=== PATIENT | female | born 1990 | race Two or more races ===

== ENCOUNTER 2021-01-08 06:38 | Inpatient (IN) | payer MEDICAID ==
[~2021-01-08] VITALS: Ht 157.5 cm; Wt 85.9 kg
[2021-01-08] MEDS ORDERED: PREN1TAB62 PO (06:59)
[2021-01-08] MEDS ORDERED: TERBUTALINE 1 MG/ML, 1ML SQ PRN (07:00)
[2021-01-08] MEDS ORDERED: OXYTOCIN 30U/ 0.9% NaCL 500ML 500 ML IV PRN (07:00)
[2021-01-08] MEDS ORDERED: FENTANYL PF 100 MCG/2ML IVPush PRN (07:00)
[2021-01-08] MEDS ORDERED: ONDANSETRON 2MG/ML, 2ML IVPush PRN (07:00)
[2021-01-08] MEDS ORDERED: FENTANYL PF 100 MCG/2ML IV PRN (07:00)
[2021-01-08] MEDS ORDERED: PLEASE ENTER HEIGHT AND WEIGHT MC SCH (07:00)
[2021-01-08] MEDS ORDERED: D5%-LACTATED RINGERS 1,000 ML IV SCH (07:00)
[2021-01-08] MEDS ORDERED: OXYTOCIN 30U/ 0.9% NaCL 500ML 500 ML IV ONE (07:00)
[2021-01-08] MEDS ORDERED: TERBUTALINE 1 MG/ML, 1ML IVPush PRN (07:00)
[2021-01-08] MEDS ORDERED: PLEASE ENTER ALLERGIES MC SCH (07:00)
[2021-01-08] MEDS ORDERED: CALCIUM CARBONATE 500 MG TAB.CHEW PO PRN (07:00)
[2021-01-08 07:01] VITALS: BP 134/80
[2021-01-08] MEDS: LACTATED RINGERS 1,000 ML IV SCH ×2 (07:10→15:41)
[2021-01-08] MEDS ORDERED: LIDOCAINE 1%, 20ML ONE (07:14)
[2021-01-08] MEDS ORDERED: OXYTOCIN 30U/ 0.9% NaCL 500ML 500 ML ONE (07:14)
[2021-01-08] MEDS ORDERED: MISOPROSTOL 200 MCG TABLET ONE (07:14)
[2021-01-08 07:20] LABS: BASOPHILS % (AUTO) 1 % (0-1); EOSINOPHILS % (AUTO) 1 % (1-7); LYMPHOCYTES % (AUTO) 33 % (22-44); MEAN CORPUSCULAR HEMOGLOBIN 29.1 pg (27.0-34.8); MEAN CORPUSCULAR HGB CONC 34.1 g/dL (32.4-35.8); MEAN PLATELET VOLUME 9.4 fL (7.4-10.4); MONOCYTES % (AUTO) 8 % (2-9); NEUTROPHILS % (AUTO) 57 % (42-75); PLATELET COUNT 203 x10^3/uL (130-400); RED BLOOD COUNT 4.94 x10^6/uL (3.82-5.3); RED CELL DISTRIBUTION WIDTH 14.5 % (9.6-15.2)
[2021-01-08 07:21] LABS: MD NO
[2021-01-08] MEDS ORDERED: FENTANYL PF 100 MCG/2ML ONE ×2 (15:33→16:29)
[2021-01-08] MEDS ORDERED: NEWBORN KIT ONE (16:48)
[2021-01-08] MEDS ORDERED: IBUPROFEN 600 MG TABLET ONE (17:53)
[2021-01-08] MEDS ORDERED: OXYcodone/APAP 5/325MG TABLET PO PRN ×2 (18:00)
[2021-01-08] MEDS ORDERED: SIMETHICONE 80 MG CHEW TAB PO PRN (18:00)
[2021-01-08] MEDS ORDERED: MISOPROSTOL 200 MCG TABLET PR PRN (18:00)
[2021-01-08] MEDS ORDERED: ACETAMINOPHEN 325 MG TABLET PO PRN (18:00)
[2021-01-08] MEDS: OXYTOCIN 30U/ 0.9% NaCL 500ML 500 ML IV SCH (18:00)
[2021-01-08] MEDS ORDERED: ONDANSETRON 2MG/ML, 2ML IV PRN (18:00)
[2021-01-08 19:50] VITALS: BP 107/62
[2021-01-09 00:30] VITALS: BP 91/66
[2021-01-09 02:31] LABS: BASOPHILS % (AUTO) 0 % (0-1); EOSINOPHILS % (AUTO) 1 % (1-7); LYMPHOCYTES % (AUTO) 18 % (22-44); MEAN PLATELET VOLUME 9.7 fL (7.4-10.4); MONOCYTES % (AUTO) 8 % (2-9); NEUTROPHILS % (AUTO) 74 % (42-75); PLATELET COUNT 188 x10^3/uL (130-400); RED BLOOD COUNT 4.66 x10^6/uL (3.82-5.3); RED CELL DISTRIBUTION WIDTH 14.3 % (9.6-15.2)
[2021-01-09 02:44] LABS: MD NO
[2021-01-09] MEDS: IBUPROFEN 600 MG TABLET PO PRN ×3 (03:51→16:33)
[2021-01-09 03:52] VITALS: BP 116/81
[2021-01-09] MEDS: OXYTOCIN 30U/ 0.9% NaCL 500ML 500 ML IV SCH ×2 (04:00→05:17)
[2021-01-09 07:30] VITALS: BP 103/67
[2021-01-09] MEDS: PRENATAL VIT/IRON/FA 1 EACH TABLET PO SCH (08:15)
[2021-01-09] MEDS: DOCUSATE 100 MG CAPSULE PO PRN (08:15)
[2021-01-09 11:30] VITALS: BP 107/72
[2021-01-09 20:00] VITALS: BP 122/74
[2021-01-10] MEDS: IBUPROFEN 600 MG TABLET PO PRN (07:30)
[2021-01-10] MEDS: DOCUSATE 100 MG CAPSULE PO PRN (07:30)
[2021-01-10] MEDS: PRENATAL VIT/IRON/FA 1 EACH TABLET PO SCH (07:30)
[2021-01-10 07:45] VITALS: BP 108/77
[2021-01-10] MEDS: OXYTOCIN 30U/ 0.9% NaCL 500ML 500 ML IV SCH ×2 (08:02)
[2021-01-10] MEDS ORDERED: DIPH,PERTUSS(ACELL),TET VAC/PF NC IM-VACC ONE ×2 (11:00→11:30)
== END 2021-01-10 11:44 | disposition home or self-care (01) | DRG 807 ==
LOC: LDIP 06:38 → 2NW 19:33
PROVIDERS: ADMIT Obstetrics & Gynecology; ATTEND Obstetrics & Gynecology
PROC: 10E0XZZ Delivery of Products of Conception, External Approach (ICD-10-PCS; principal; 2021-01-08)
PROC: 10907ZC Drainage of Amniotic Fluid, Therapeutic from Products of Conception, Via Natural or Artificial Opening (ICD-10-PCS; 2021-01-08)
PROC: 3E0R3BZ Introduction of Anesthetic Agent into Spinal Canal, Percutaneous Approach (ICD-10-PCS; 2021-01-08)
PROC: 00HU33Z Insertion of Infusion Device into Spinal Canal, Percutaneous Approach (ICD-10-PCS; 2021-01-08)
DX: O77.0 Labor and delivery complicated by meconium in amniotic fluid (principal); Z37.0 Single live birth; Z3A.40 40 weeks gestation of pregnancy; O69.81X0 Labor and delivery complicated by cord around neck, without compression, not applicable or unspecified; Z20.822 Contact with and (suspected) exposure to COVID-19
CPT/HCPCS: 36415; 85025; 86592; 86850; 86900; 87635; 90715; G0378; J3010; J2590; J7120